=== PATIENT | male | born 1975 | race African-American/Black ===

== ENCOUNTER 2016-11-06 17:32 | Emergency (ER) | payer OTHER ==
[~2016-11-06] VITALS: Ht 175.3 cm; Wt 87.5 kg
[2016-11-06 17:40] VITALS: TEMP 36.6; O2SAT 97
[2016-11-06] MEDS ORDERED: SODIUM CHLORIDE 0.9% 1000ML 1,000 ML IV STA (18:01)
[2016-11-06 18:13] LABS: BASO % 0.4 %; BASO ABS # 0.04 K/uL (0-0.2); COMPLETE YES; EOS % 1.7 %; HEMATOCRIT 42.1 % (42-52); IG% 0.3 %; LYMPH ABS # 2.08 K/uL (1.2-3.4); MEAN CELL VOLUME 90.1 fL (80-100); MEAN CORPUSCULAR HEMOGLOBIN 31.3 pg (25-34); MEAN CORPUSCULAR HGB CONC 34.7 g/dl (32-36); MEAN PLATELET VOLUME 10.8 fL (7.4-10.4); MONO % 5.5 %; NEUT % 71.1 %; PLATELET COUNT 264 K/uL (130-400); RED BLOOD COUNT 4.67 M/uL (4.7-6.1); WHITE BLOOD COUNT 9.92 K/uL (4.8-10.8)
[2016-11-06 18:16] VITALS: Ht 175.3 cm; Wt 87.5 kg
[2016-11-06] MEDS ORDERED: INSU70IN2 SC (18:17)
[2016-11-06 18:23] LABS: INR 0.9 (0.9-1.1)
[2016-11-06 18:29] LABS: ALT/SGPT 19 U/L (12-78); BLOOD UREA NITROGEN 11 mg/dl (7-18); BUN/CREATININE RATIO 8.6 (10-20); CALCIUM 9.8 mg/dl (8.5-10.1); CARBON DIOXIDE 28 mmol/L (21-32); CHLORIDE 104 mmol/L (98-107); GLUCOSE 180 mg/dl (70-99); MAGNESIUM 1.9 mg/dl (1.8-2.4); POTASSIUM 4.2 mmol/L (3.5-5.1); SODIUM 139 mmol/L (136-145)
[2016-11-06] MEDS ORDERED: LORAZEPAM 0.5 MG TAB SL STA (18:34)
[2016-11-06 18:40] LABS: ALKALINE PHOSPHATASE 70 U/L (45-117); AST/SGOT 17 U/L (15-37); CKMB/CK RATIO 0.5 (0-3.0)
[2016-11-06 18:54] LABS: URINE APPEARANCE CLEAR (CLEAR); URINE BILIRUBIN NEG (NEG); URINE COLOR YELLOW; URINE EPITHELIAL CELL AUTO 20-30 /lpf (0-5); URINE NITRITE NEG (NEG); URINE PH 7.5 (4.5-7.5); UROBILINOGEN NEG (NEG)
[2016-11-06 18:55] LABS: MANUAL MICROSCOPIC REQUIRED? NO; REVIEW REQ? NO; SULFASALICYLIC ACID POS (NEG)
--- NOTE | 2016-11-06 19:03 | DIAGNOSTIC IMAGING REPORT ---
CHEST ONE VIEW PORTABLE CLINICAL HISTORY: 41 years-old Male presenting with EVALUATE WEAKNESS. TECHNIQUE: Portable upright AP view of the chest was obtained. COMPARISON: None. FINDINGS: Cardiomediastinal silhouette normal. Lungs and pleural spaces clear. Degenerative changes of the thoracic spine. Upper abdomen normal. IMPRESSION: 1. No acute cardiopulmonary disease. Electronically signed by: Angelo Fountain M.D. 11/06/2016 7:01 PM Dictated Date/Time: 11/06/2016 7:01 PM
[2016-11-06 19:24] VITALS: BP 177/92; PULSE 82; O2SAT 100
--- NOTE | 2016-11-07 01:58 | EMERGENCY ROOM VISIT NOTE ---
History Report prepared by Sonny: Afshan Anne Under the Supervision of: Dr. Chad Carmona M.D. First contact with patient: 18:01 Chief Complaint: CHEST PAIN Stated Complaint: CHEST PAIN Nursing Triage Summary: Patient arrives via ALS from home. Patient was walking in [place] and started to have mid chest pain but continued to walk 1/4 mile to his residence. When EMS arrived on scene the patient was hyperventilating, had tingling and numbness in his upper extremities. The chest pain radiated down to his right arm. PT reports no BM in a week. PMH of hypertension but cannot afford meds, and DM-2. BSG was 178. Pain is now 4/10. History of Present Illness The patient is a 41 year old male who presents to the Emergency Room with complaints of an episode of chest pain starting prior to arrival. The patient's girlfriend states that the patient was under a lot of stress and went storming mad down the street. The patient states that when he did so he started to experience sharp chest pain on the right side while walking. He reports that the pain went into his right arm. The patient states that he called EMS. The patient reports that the episode lasted a minute and a half. He reports that he was also short of breath at the time. The patient denies this ever happening before. He states that his chest pain has mostly resolved, but reports that he now feels fatigued. He currently rates his pain as a 4/10 in severity. The patient reports that he has been constipated for a week and notes that this is unusual. He notes he has taken laxatives with no relief. The patient notes that he has hypertension and is supposed to be taking Losartan, but states that he can't afford the medication due to lack of insurance coverage. EMS reported that the patient's blood pressure was elevated. Pt denies LOC, headache, fevers , chills, diaphoresis, visual changes, neck pain, nausea, vomiting, abdominal pain, back pain, melena, hematochezia, urinary symptoms, numbness, weakness, lymphadenopathy, rash, or other complaints. Source of History: patient, spouse/significant other Onset: prior to arrival Position: chest (right) Symptom Intensity: 4/10 Quality: sharp Timing: other (episode) Associated Symptoms: + SOB, + fatigue Note: The patient complains of constipation. Review of Systems See HPI for pertinent positives and negatives. A total of ten systems were reviewed and were otherwise negative. Past Medical & Surgical Medical Problems: (1) Hypertension (2) Type 1 diabetes Family History Heart disease Social History Smoking Status: Current Every Day Smoker Drug Use: marijuana Marital Status: in relationship Housing Status: lives with significant other Occupation Status: disabled Current/Historical Medications Scheduled Insulin Isophan/Regular (Novolin 70/30), 40 UNITS SC BID Allergies Coded Allergies: No Known Allergies (Unverified , 11/06/16) Physical Exam Vital Signs Date Time Temp Pulse Resp B/P (MAP) Pulse Ox O2 Delivery O2 Flow Rate FiO2 11/06/16 19:24 82 20 177/92 100 11/06/16 19:12 82 20 177/92 100 Room Air 11/06/16 17:46 100 11/06/16 17:40 36.6 94 20 175/108 97 Room Air 11/06/16 17:40 97 Room Air 11/06/16 17:40 97 Room Air Physical Exam GENERAL: Awake, alert, mildly anxious appearing, in no distress HENT: Normocephalic, atraumatic. Oropharynx unremarkable. EYES: Normal conjunctiva. Sclera non-icteric. NECK: Supple. No nuchal rigidity. FROM. No JVD. RESPIRATORY: Clear to auscultation. CARDIAC: Regular rate, normal rhythm. Extremities warm and well perfused. Pulses equal. ABDOMEN: Soft, non-distended. No tenderness to palpation. No rebound or guarding. No masses. RECTAL: Deferred. MUSCULOSKELETAL: Chest examination reveals mild tenderness. The back is symmetrical on inspection without obvious abnormality. There is no CVA tenderness to palpation. No joint edema. LOWER EXTREMITIES: Calves are equal size bilaterally and non-tender. No edema. No discoloration. NEURO: Normal sensorium. No sensory or motor deficits noted. SKIN: No rash or jaundice noted. Medical Decision & Procedures ER Provider Diagnostic Interpretation: Radiology results as stated below per my review and radiologist interpretation: CHEST ONE VIEW PORTABLE CLINICAL HISTORY: 41 years-old Male presenting with EVALUATE WEAKNESS. TECHNIQUE: Portable upright AP view of the chest was obtained. COMPARISON: None. FINDINGS: Cardiomediastinal silhouette normal. Lungs and pleural spaces clear. Degenerative changes of the thoracic spine. Upper abdomen normal. IMPRESSION: 1. No acute cardiopulmonary disease. Electronically signed by: Angelo Fountain M.D. 11/06/2016 7:01 PM Dictated Date/Time: 11/06/2016 7:01 PM Laboratory Results 11/06/16 17:45 Red Blood Count 4.67, Mean Corpuscular Volume 90.1, Mean Corpuscular Hemoglobin 31.3, Mean Corpuscular Hemoglobin Concent 34.7, Mean Platelet Volume 10.8, Neutrophils (%) (Auto) 71.1, Lymphocytes (%) (Auto) 21.0, Monocytes (%) (Auto) 5.5, Eosinophils (%) (Auto) 1.7, Basophils (%) (Auto) 0.4, Neutrophils # (Auto) 7.05, Lymphocytes # (Auto) 2.08, Monocytes # (Auto) 0.55, Eosinophils # (Auto) 0.17, Basophils # (Auto) 0.04 11/06/16 17:45 Test 11/06/16 17:45 11/06/16 18:40 White Blood Count 9.92 K/uL (4.8-10.8) Red Blood Count 4.67 M/uL (4.7-6.1) Hemoglobin 14.6 g/dL (14.0-18.0) Hematocrit 42.1 % (42-52) Mean Corpuscular Volume 90.1 fL (80-100) Mean Corpuscular Hemoglobin 31.3 pg (25-34) Mean Corpuscular Hemoglobin Concent 34.7 g/dl (32-36) Platelet Count 264 K/uL (130-400) Mean Platelet Volume 10.8 fL (7.4-10.4) Neutrophils (%) (Auto) 71.1 % Lymphocytes (%) (Auto) 21.0 % Monocytes (%) (Auto) 5.5 % Eosinophils (%) (Auto) 1.7 % Basophils (%) (Auto) 0.4 % Neutrophils # (Auto) 7.05 K/uL (1.4-6.5) Lymphocytes # (Auto) 2.08 K/uL (1.2-3.4) Monocytes # (Auto) 0.55 K/uL (0.11-0.59) Eosinophils # (Auto) 0.17 K/uL (0-0.5) Basophils # (Auto) 0.04 K/uL (0-0.2) RDW Standard Deviation 46.6 fL (36.4-46.3) RDW Coefficient of Variation 14.1 % (11.5-14.5) Immature Granulocyte % (Auto) 0.3 % Immature Granulocyte # (Auto) 0.03 K/uL (0.00-0.02) Prothrombin Time 10.0 SECONDS (9.0-12.0) Prothromb Time International Ratio 0.9 (0.9-1.1) Activated Partial Thromboplast Time 25.4 SECONDS (21.0-31.0) Partial Thromboplastin Ratio 1.0 Anion Gap 7.0 mmol/L (3-11) Est Creatinine Clear Calc Drug Dose 80.3 ml/min Estimated GFR () 77.5 Estimated GFR (Non- 66.8 BUN/Creatinine Ratio 8.6 (10-20) Calcium Level 9.8 mg/dl (8.5-10.1) Magnesium Level 1.9 mg/dl (1.8-2.4) Total Bilirubin 0.3 mg/dl (0.2-1) Direct Bilirubin < 0.1 mg/dl (0-0.2) Aspartate Amino Transf (AST/SGOT) 17 U/L (15-37) Alanine Aminotransferase (ALT/SGPT) 19 U/L (12-78) Alkaline Phosphatase 70 U/L (45-117) Total Creatine Kinase 146 U/L (39-308) Creatine Kinase MB 0.8 ng/ml (0.5-3.6) Creatine Kinase MB Ratio 0.5 (0-3.0) Troponin I < 0.015 ng/ml (0-0.045) Total Protein 7.1 gm/dl (6.4-8.2) Albumin 3.5 gm/dl (3.4-5.0) Thyroid Stimulating Hormone (TSH) 1.300 uIu/ml (0.300-4.500) Urine Color YELLOW Urine Appearance CLEAR (CLEAR) Urine pH 7.5 (4.5-7.5) Urine Specific [place] 1.020 (1.000-1.030) Urine Protein 1+ (NEG) Urine Glucose (UA) NEG (NEG) Urine Ketones 1+ (NEG) Urine Occult Blood 2+ (NEG) Urine Nitrite NEG (NEG) Urine Bilirubin NEG (NEG) Urine Urobilinogen NEG (NEG) Urine Leukocyte Esterase SMALL (NEG) Urine WBC (Auto) 10-30 /hpf (0-5) Urine RBC (Auto) >30 /hpf (0-4) Urine Hyaline Casts (Auto) 1-5 /lpf (0-5) Urine Epithelial Cells (Auto) 20-30 /lpf (0-5) Urine Bacteria (Auto) NEG (NEG) Laboratory results reviewed by me Medications Administered Medications (Trade) Dose Ordered Sig/Gurpreet Route Start Time Stop Time Status Last Admin Dose Admin Lorazepam (Ativan Tab) 0.5 mg NOW STAT SL 11/06/16 18:34 11/06/16 18:35 DC 11/06/16 18:37 0.5 MG ECG Indication: chest pain Rate (beats per minute): 94 Rhythm: normal sinus Findings: RBBB, no acute ischemic change, no ectopy Comparison ECG Date: EMS [employer] Change: Sinus tachycardia, rate of 126, Right Bundle Branch Block, Right [place] Deviation , No ST Elevations. ED Course 1800: Ordered NSS 1000 ml @ 125 mls/hr IV. 1804: The patient was evaluated in room B7. A complete history and physical exam was performed. 1829: The patient wants to leave, but agrees to stay temporarily. 1833: Ordered Ativan Tab 0.5 mg SL. 1919: I reevaluated the patient. He is signing out AMA. Discussed discharge instructions: he verbalized understanding and agreement. The patient is ready for discharge. Medical Decision Triage Nursing notes reviewed. The patient's presentation and history were concerning for chest pain. Etiologies such as cardiac ischemia, aortic dissection, pulmonary embolism, pneumonia, pneumothorax, musculoskeletal, infections, gastrointestinal, as well as others were entertained. The patient was evaluated. He was quite worked up. I discussed treatment with him. He had an IV established initially but would not let this in place. The patient was more worked up. I did offer a small dose of lorazepam to help him relax. This was done. He felt better with this. He did allow us to perform an x-ray, EKG and blood work. The patient then wanted to leave. He called for a ride. I had a long discussion with him on several occasions about staying for treatment as he has multiple cardiac risk factors. He is not taking his antihypertensive medication. He is diabetic. The patient is a smoker and has a family history of heart disease. The patient states that he does not want to know anything about his heart. He had an unremarkable CBC and troponin. Chemistry panel was unremarkable. The patient had a borderline d-dimer. Despite multiple attempts with myself and nursing the patient would not cooperate with treatment and wanted to leave the hospital. He was not under the influence. He was clear. His significant other tried to convince him to stay as well. The patient has demonstrated no significant defect in the decision-making capacity to make choices. The encounter had a good level of communication with language the patient can easily understand. I feel trust was present and conveyed that our action/intentions were the best interest of the patient. The patient was given all relevant information and reiterated the explained risks and benefits. The patient explained the reasoning for refusing treatment clearly. The patient possesses and expresses a set of values and goals, the ability to communicate and understand, and an ability to reason and deliberate. Despite acting emphatically, attentively and with the utmost patient's the patient declined further treatment. I offered options, negotiated, and explored every reasonable choice. I must respect the patient's autonomy and that they feel that their choices are best for them despite the associated risks of leaving AGAINST MEDICAL ADVICE. Impression Primary Impression: Left against medical advice Additional Impression: Chest pain Scribe Attestation The scribe's documentation has been prepared under my direction and personally reviewed by me in its entirety. I confirm that the note above accurately reflects all work, treatment, procedures, and medical decision making performed by me. Departure Information Dispostion Against Medical Advice Referrals No Doctor, Assigned (PCP) Forms Call Back Authorization, HOME CARE DOCUMENTATION FORM, IMPORTANT VISIT INFORMATION Patient Instructions My [facility] Additional Instructions You are leaving against the physician's medical advice. Your evaluation is not complete. The exact cause of your symptoms is not known at this time. Your health could be at significant risk by your actions of leaving before the evaluation was completed. This could result in worsening of your condition, need for further treatment, hospitalization, surgery, or even . You may return at any time, for any reason, but you are encouraged to return immediately if your symptoms worsen or if you change your mind. Since you don't want to complete the evaluation here please seek medical care elsewhere as soon as possible. Follow-up with your primary care physician tomorrow for a recheck of your current condition. Problem Qualifiers
== END 2016-11-06 19:25 | disposition left against medical advice (07) ==
LOC: EDBD 17:32 → C.EDB 17:34
DX: R07.9 Chest pain, unspecified (principal); I10 Essential (primary) hypertension; E11.9 Type 2 diabetes mellitus without complications; K59.00 Constipation, unspecified; F17.200 Nicotine dependence, unspecified, uncomplicated; F12.90 Cannabis use, unspecified, uncomplicated; Z79.4 Long term (current) use of insulin